=== PATIENT | male | born 1990 | race Caucasian/White ===

== ENCOUNTER 2020-01-23 15:39 | Emergency (ER) | payer SELFPAY ==
--- NOTE | 2020-01-23 15:40 | USR_ITS ---
PROCEDURE INFORMATION: Exam: US Scrotum Exam date and time: 01/23/2020 4:36 PM Age: 29 years old Clinical indication: Groin pain TECHNIQUE: Imaging protocol: Real-time ultrasound of the scrotum and contents with color Doppler and image documentation. COMPARISON: No relevant prior studies available. FINDINGS: Right testicle: Normal. No mass. No torsion. Normal vascular flow which appears slightly more prominent when compared to the left. Left testicle: Normal. No mass. No torsion. Normal vascular flow. Epididymides: There are 2 left epididymal head cysts the larger of which measures 4 mm. Scrotum: There are varicoceles on the left measuring 3-4 mm. US/US scrotum [id number] IMPRESSION: 1. Left scrotal varicoceles measuring 3-4 mm. 2. There is appearing flow in the bilateral testicles. Blood flow to the right testicle is minimally more prominent than the left. Please correlate clinically if there is suspicious for right work itis. 3. Small left epididymal head cysts.
[2020-01-23 15:43] VITALS: PULSE 64; RESP 18; TEMP 36.2; O2SAT 98; BMI 35.4
--- NOTE | 2020-01-23 16:19 | W.ED.MALEGU ---
HPI - Male Genitourinary General: Chief complaint: Urogenital-Male Stated complaint: PAIN IN R TESTICLE Time Seen by Provider: 01/23/20 15:54 Source: patient Mode of arrival: ambulatory Limitations: no limitations History of Present Illness: HPI Narrative: 29-year-old male patient presents to the emergency department with 2-week onset history of right testicular pain. Reports worsening symptoms today. Describes pain as sharp. Worsened pain around 10 AM today. He was evaluated at [facility] in [place]. [place] [facility]. He denies dysuria, testicular discharge, fever or chills. Denies nausea vomiting diarrhea. 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 Test results completed at [facility] in [place] reviewed. UA negative for blood, leukoesterase/nitrates. Serology testing reviewed, creatinine 0.86, normal hemoglobin hematocrit and white blood count. MD Complaint: testicle pain Onset (ago): week(s) (2) Duration: intermittent and progressively worsening Location: right testicle and right inguinal region Severity: moderate Severity scale (1-10): 5 Quality: sharp Relieving factors: none Exacerbating factors: none Associated symptoms: Reports no associated symptoms; Deny dysuria, nausea, urinary incontinence or vomiting Review of Systems General: Reports: 10 or more systems reviewed and unremarkable except in HPI and below Const: Denies: fever(s), chills or diaphoresis Eyes: Denies: blurry vision or eye redness ENMT: Denies: throat pain, dental pain or disequilibrium Card: Denies: chest pain, palpitations or irregular heart rhythm Resp: Denies: dyspnea, productive cough, non-productive cough or wheezing GI: Denies: abdominal pain, nausea or vomiting : Reports: testicular pain (rt); Denies: difficulty urinating, dysuria, urinary urgency, difficulty starting urination, change in urine stream or urinary incontinence Musc: Denies: neck pain, back pain or joint pain Skin/Breast: Denies: rash or pruritus Neuro: Denies: headache(s), weakness in extremities or behavioral changes Psych: Denies: anxiety or depression Aakash/Lymph: Denies: easy bruising Physical Exam Const: COMMON NORMALS: no acute distress, patient oriented x3, healthy appearing and alert GENERAL APPEARANCE: cooperative, comfortable and well hydrated HENMT: COMMON NORMALS: normocephalic, Normal external nose present and moist oral mucous membranes HEAD & SCALP: normocephalic NOSE: Normal external nose present Eye: COMMON NORMALS: Equal, round and reactive pupils present and EOMs intact bilaterally GENERAL EYE: appearance normal, both eyes and all related structures PUPIL: Yes Equal, round and reactive pupils present Neck/C-Spine: COMMON NORMALS: full ROM and no lymphadenopathy GENERAL: Yes normal visual inspection and Yes trachea midline CERVICAL SPINE: Yes cervical ROM normal Lymph: LYMPHATIC: no lymphadenopathy noted Chest: COMMONS NORMALS: normal inspection of the chest Resp: COMMON NORMALS: normal respiratory effort and clear to auscultation bilaterally AUSCULTATION: clear to auscultation bilaterally Cardio: COMMON NORMALS: regular rhythm, S1 normal heart sound present and S2 normal heart sound present RHYTHM: regular rhythm HEART SOUNDS: S1 normal heart sound present and S2 normal heart sound present GI: COMMON NORMALS: Normal to inspection, nondistended, normoactive bowel sounds present and Soft to palpation INSPECTION: Yes normal to inspection and No visible herniation PALPATION: Yes Soft to palpation and No Hernia present : COMMON NORMALS: Yes no CVA tenderness, Yes normal external exam, Yes no scrotal swelling and Yes No hernias present BLADDER/KIDNEY EXAM: Yes no CVA tenderness MALE GROIN/PERINEUM EXAM: Yes inguinal lymphadenopathy (RT), No Genital lesions present and Yes tenderness (lower pubis) PENIS: normal penis, circumcised and No Genital lesions present MEATUS: meatus normal, no meatla discharge and No Blood at meatus present SCROTUM: Yes testes descended bilaterally, Yes Cremasteric reflex present (WITH TENDERNESS), No inguinal hernia and No scrotal swelling TESTES: Yes testicular lie normal and Yes testicular tenderness (more pronounced posteriorly ) Testicular tenderness laterality: right Back/Pelvis: COMMON NORMALS: no CVA tenderness and thoracic and lumbar spine normal to inspection Extremity: COMMON NORMALS: normal to inspection and capillary refill normal Neuro: COMMON NORMALS: patient oriented x3 and no focal motor deficits SENSORIUM/ORIENTATION: Yes alert Psych: COMMON NORMALS: mental status grossly normal, Normal thought process present and cooperative ACTIVITY/MOTOR BEHAVIOR: Yes appropriate eye contact THOUGHT PROCESS: Normal thought process present Skin: COMMON NORMALS: no rashes or lesions noted and turgor normal GENERAL SKIN EXAM: no rashes or lesions noted and turgor normal Course Vital Signs: Vital signs: Vital Signs Temperature 97.2 F L 01/23/20 15:43 Pulse Rate 61 01/23/20 18:17 Respiratory Rate 18 01/23/20 18:17 Blood Pressure 147/69 01/23/20 18:17 Pulse Oximetry 97 01/23/20 18:17 MDM - Male Lab Data: Labs: Lab Results 01/23/20 Range/Units 17:15 Urine Color Yellow (Yellow) Urine Appearance Sl cloudy A (CLEAR) Urine pH 8 H (5-7) Ur Specific Gravit y 1.015 (1.005-1.030) Urine Protein Neg (Negative) Urine Glucose (UA) Norm (Normal) Urine Ketones Negative (Negative) Urine Blood Neg (Negative) Urine Nitrate Negative (Negative) Urine Bilirubin Neg (Negative) Urine Urobilinogen 4 H (Negative) mg/dL Ur Leukocyte Maryana ase Trace H (Negative) Urine RBC 0-4 H (0-2) /hpf Urine WBC 0-4 H (0-5) /hpf Ur Squamous Epith Cells 0-4 H (0-5) /hpf Amorphous Sediment 4+ /hpf Urine Bacteria 1+ H (NONE) /hpf Urine Mucus 2+ /hpf Imaging Data: US: Radiologist's impression: [place] [address] Ultrasound Report Signed with Addenda Patient: Saranya ANGUIANO #: [id number] : 1990Acct#:[id number] Age/Sex: 29 / MADM Date: 01/23/20 Loc: [facility]/Bed: Attending Dr: Ordering Provider/Ordering MD: Kelly Piña NP Date of Service: 01/23/20 Procedure(s): US scrotum [id number] Accession Number(s): [id number] Report Number: [id number] ADDENDUM PROCEDURE INFORMATION: Exam: US Scrotum Exam date and time: 01/23/2020 4:36 PM Clinical indication: Groin pain TECHNIQUE: Imaging protocol: Real-time ultrasound of the scrotum and contents with color Doppler and image documentation. COMPARISON: No relevant prior studies available. FINDINGS: Addendum Dictated By: Keturah Montez MD Addendum Signed By: Keturah Montezigned Date/Time:01/23/201708 Addendum Cosigned By: ADDENDUM / scrotum [id number] Impression 2 should read there is normal appearing flow in the bilateral testicles. The right testicle blood flow is minimally more prominent than the left. Please correlate clinically if there is suspicion for right orchitis. Results were discussed with the patient's provider at the time of this addendum. Addendum Dictated By: Keturah Montez MD Addendum Signed By: Keturah Montezigned Date/Time:01/23/201708 Addendum Cosigned By: PROCEDURE INFORMATION: Exam: US Scrotum Exam date and time: 01/23/2020 4:36 PM Age: 29 years old Clinical indication: Groin pain TECHNIQUE: Imaging protocol: Real-time ultrasound of the scrotum and contents with color Doppler and image documentation. COMPARISON: No relevant prior studies available. FINDINGS: Right testicle: Normal. No mass. No torsion. Normal vascular flow which appears slightly more prominent when compared to the left. Left testicle: Normal. No mass. No torsion. Normal vascular flow. Epididymides: There are 2 left epididymal head cysts the larger of which measures 4 mm. Scrotum: There are varicoceles on the left measuring 3-4 mm. / scrotum [id number] IMPRESSION: 1. Left scrotal varicoceles measuring 3-4 mm. 2. There is appearing flow in the bilateral testicles. Blood flow to the right testicle is minimally more prominent than the left. Please correlate clinically if there is suspicious for right work itis. 3. Small left epididymal head cysts. Dictated By:Keturah Montez MD Signed By:Keturah Montez MDSigned Date/Time:01/23/201650 DD/ 49 Discharge Plan Discharge Patient Disposition: Home Clinical Impression: Orchitis of right testicle, Pain in right testicle Condition: Stable Prescriptions: New naproxen 500 mg tablet 500 mg PO BID PRN (Reason: pain) Qty: 30 RF: 0 Discharge Orders: Discharge Order (Routine); Ordered 01/23/20 Ordered By: Mahi King Discharge Diet: Usual diet Discharge Activity: Limit activity as instructed Patient Instructions: Epididymo-orchitis (ED), Testicle Pain (ED) Activity Restrictions/Additional Instructions: cool compresses to the affected area as needed for pain social service will contact you with appt time and date with Dr Paige - please follow up with Dr Paige, urology to ensure you are improving Take naproxen twice daily with food as needed for pain, this will help with inflammation, do not take [id number] medication such as ibuprofen, Aleve, or Advil as duplication of therapy can occur. You may take [id number] Tylenol/acetaminophen as needed according to bottle instructions Keep the testicles elevated as this will help with pain, you may need testicular support device. No work tomorrow, avoid heavy lifting until follow-up with Dr. Paige. Stand Alone Forms: Work/School Release Coding Level of Care Code ED Health Care Coach for Marily Fwd Exam Comprehensive
[2020-01-23 18:01] VITALS: BP 114/89; RESP 18; O2SAT 98
[2020-01-23] MEDS: azithromycin 250 mg Tablet 1000 MG PO (18:09)
[2020-01-23] MEDS: cefTRIAXone 1,000 mg SDV 1000 MG IM (18:09)
[2020-01-23 18:13] LABS: Add Urine Microscopic? YES; Bilirubin Urine Neg (Negative); Blood Urine Neg (Negative); Glucose Urine UA Norm (Normal); Ketones Urine Negative (Negative); Leukocyte Esterase Urine Trace (Negative); Nitrate Urine Negative (Negative); Protein Urine Neg (Negative); Specific Gravity, Urine 1.015 (1.005-1.030); Urine Color Yellow (Yellow); Urobilinogen Urine 4 mg/dL (Negative); pH Urine 8 (5-7)
[2020-01-23 18:15] LABS: Add Urine Culture? No; Amorphous Sediment Urine 4+ /hpf; Bacteria Urine 1+ /hpf; Mucus Urine 2+ /hpf; RBC Urine 0-4 /hpf (0-2); Squamous Epithelial Cell Urine 0-4 /hpf (0-5); WBC Urine 0-4 /hpf (0-5)
[2020-01-23 18:17] VITALS: BP 147/69; PULSE 61; RESP 18; O2SAT 97
--- NOTE | 2020-01-24 09:51 | DCPLANNER ---
manager strategic partnerships had message to schedule a follow up appointment for patient with Dr. Paige. manager strategic partnerships called the office of Dr. Paige, spoke with Elke, gave clinic patients information. manager strategic partnerships was told that patients information would be printed and reviewed. Clinic will call patient with appointment information.
--- NOTE | 2020-01-25 08:07 | DCPLANNER ---
Patient has a follow up appointment scheduled for Saturday, February 01, [address] at 4:[address] Paige. Clinic will call patient with appointment information.
--- NOTE | 2020-02-22 14:45 | DCPLANNER ---
Patient had a follow up appointment scheduled for 02.01.[address] Paige - patient did not attend appointment.
== END 2020-01-23 18:24 | disposition home or self-care (01) ==
PROVIDERS: Registered Nurse; Emergency Provider Nurse Practitioner Family
DX: N45.2 Orchitis (principal)
CPT/HCPCS: 12345; 76870; 81001; 96372; 99281; 99283; J0696; Q0144